=== PATIENT | male | born 1985 | race Caucasian/White ===

== ENCOUNTER 2021-09-25 11:37 | Emergency (ER) | payer SELFPAY ==
[2021-09-25 12:22] LABS: #Basophils 0.1 10x3/uL (0.0-0.2); #Eosinphils 0.3 10x3/uL (0.0-0.5); #Monocytes 0.5 10x3/uL (0.0-1.1); #Neutrophils 5.7 10x3/uL (1.5-8.4); %Basophils 0.6 % (0.0-2.0); %Eosinophils 3.6 % (0.0-6.0); %Lymphocytes 19.9 % (18.0-47.0); %Monocytes 6.5 % (0.0-10.0); Hemoglobin 15.7 g/dL (13.5-17.5); Mean Corpuscular HGB CONC 35.4 g/dL (32.0-36.0); Mean Corpuscular Hemoglobin 29.3 pg (27.0-33.0); Mean Corpuscular Volume 82.6 fl (81.2-95.1); Mean Platelet Volume 9.4 fl (7.4-10.4); Platelet Count 213 10x3/uL (150-450); RBC Distribution Width 12.7 % (11.5-14.5); Red Blood Cell (RBC) Count 5.36 10x6/uL (4.32-5.72); White Blood Cell (WBC) Count 8.3 10x3/uL (3.5-10.5)
[2021-09-25 14:06] LABS: ALT (SGPT) 59 U/L (8-55); AST (SGOT) 35 U/L (5-34); Albumin 4.2 g/dL (3.5-5.0); Alkaline Phosphatase 100 U/L (40-110); Anion Gap 13 mmol/L (10-20); BUN (Urea Nitrogen) 11 mg/dL (8.9-20.6); Bilirubin, Total 1.2 mg/dL (0.2-1.2); Calc. Creatinine Clearance 0 mL/min (70-130); Calcium 9.1 mg/dL (7.8-10.44); Carbon Dioxide 27 mmol/L (22-29); Chloride 104 mmol/L (98-107); Globulin 2.9 g/dL (2.4-3.5); Glucose 97 mg/dL (70-105); Protein, Total 7.1 g/dL (6.0-8.3); Sodium 140 mmol/L (136-145)
== END 2021-09-25 14:28 | disposition home or self-care (01) ==
LOC: CSHERS 11:37
DX: J20.9 Acute bronchitis, unspecified (principal)
CPT/HCPCS: 71045; 80053; 83690; 84484; 85025; 93005

== ENCOUNTER 2021-12-09 20:00 | Emergency (ER) | payer SELFPAY ==
[2021-12-09] MEDS ORDERED: Ondansetron ODT 4 MG TAB ONE (20:54)
== END 2021-12-09 20:59 | disposition home or self-care (01) ==
LOC: CSHERS 20:00
DX: K52.9 Noninfective gastroenteritis and colitis, unspecified (principal)
CPT/HCPCS: 99283; Q0162

== ENCOUNTER 2022-01-14 17:25 | Emergency (ER) | payer SELFPAY ==
[2022-01-14] MEDS ORDERED: Metoclopramide HCl 10 MG/2 ML VIAL ONE (19:02)
[2022-01-14] MEDS ORDERED: diphenhydrAMINE 50 MG/ML VIAL ONE (19:02)
== END 2022-01-14 20:38 | disposition home or self-care (01) ==
LOC: CSHERS 17:25
DX: R51.9 Headache, unspecified (principal)
CPT/HCPCS: 96361; 96374; 96375; J1200; J2765

== ENCOUNTER 2022-01-15 22:42 | Emergency (ER) | payer SELFPAY ==
[2022-01-15] MEDS ORDERED: methylPREDNISolone Sod Succ/PF 125 MG/2 ML VIAL ONE (23:41)
[2022-01-15] MEDS ORDERED: Acetaminophen 500 MG TAB ONE (23:42)
[2022-01-15] MEDS ORDERED: Magnesium 2 GM/50 ML BAG (IN WATER) ONE (23:42)
== END 2022-01-16 01:00 | disposition home or self-care (01) ==
LOC: CSHERS 22:42
DX: R51.9 Headache, unspecified (principal)
CPT/HCPCS: 70450; 96374; 96375; J2930; J3475

== ENCOUNTER → 2022-09-08 | Emergency (ER) | payer SELFPAY | LOC: CSHERS 18:17 | DX: Z53.21 Procedure and treatment not carried out due to patient leaving prior to being seen by health care provider (principal) ==

== ENCOUNTER 2022-09-30 12:32 | Emergency (ER) | payer SELFPAY ==
[2022-09-30] MEDS ORDERED: Metoclopramide HCl 10 MG TAB ONE (14:01)
[2022-09-30] MEDS ORDERED: Acetaminophen 500 MG TAB ONE (14:01)
[2022-09-30] MEDS ORDERED: Ketorolac Tromethamine 30 MG/ML VIAL ONE ×2 (14:02)
== END 2022-09-30 14:50 | disposition home or self-care (01) ==
LOC: CSHERS 12:32
DX: R51.9 Headache, unspecified (principal)
CPT/HCPCS: 96372; 99283; J1885

== ENCOUNTER 2022-10-02 10:06 | Emergency (ER) | payer SELFPAY ==
[2022-10-02] MEDS ORDERED: Ketorolac Tromethamine 30 MG/ML VIAL ONE (10:37)
[2022-10-02 11:01] LABS: #Basophils 0.1 10x3/uL (0.0-0.2); #Eosinphils 0.2 10x3/uL (0.0-0.5); #Monocytes 0.5 10x3/uL (0.0-1.1); #Neutrophils 6.4 10x3/uL (1.5-8.4); %Basophils 0.7 % (0.0-2.0); %Eosinophils 1.7 % (0.0-6.0); %Lymphocytes 20.1 % (18.0-47.0); %Neutrophils 71.3 % (40.0-75.0); Hemoglobin 15.2 g/dL (13.5-17.5); Mean Corpuscular Hemoglobin 29.1 pg (27.0-33.0); Mean Corpuscular Volume 83.1 fl (81.2-95.1); Mean Platelet Volume 9.4 fl (7.4-10.4); Platelet Count 224 10x3/uL (150-450); RBC Distribution Width 12.4 % (11.5-14.5); Red Blood Cell (RBC) Count 5.22 10x6/uL (4.32-5.72)
[2022-10-02 11:13] LABS: ALT (SGPT) 37 U/L (8-55); AST (SGOT) 23 U/L (5-34); Albumin 3.8 g/dL (3.5-5.0); Alkaline Phosphatase 84 U/L (40-110); Anion Gap 12 mmol/L (10-20); BUN (Urea Nitrogen) 14 mg/dL (8.9-20.6); Bilirubin, Total 0.7 mg/dL (0.2-1.2); Calc. Creatinine Clearance 0 mL/min (70-130); Calcium 8.7 mg/dL (7.8-10.44); Carbon Dioxide 27 mmol/L (22-29); Chloride 107 mmol/L (98-107); Estimated GFR 76; Globulin 2.1 g/dL (2.4-3.5); Glucose 105 mg/dL (70-105); Magnesium 2.2 mg/dL (1.6-2.6); Potassium 3.9 mmol/L (3.5-5.1); Protein, Total 5.9 g/dL (6.0-8.3); Sodium 142 mmol/L (136-145)
[2022-10-02 11:38] LABS: Bilirubin Neg (Negative); Blood, Urine Negative (Negative); Clarity Clear (Clear); Glucose, Urine (Dipstick) Normal (Negative); Ketone, Urine Negative (Negative); Leukocyte Negative (Negative); Nitrite Negative (Negative); Protein, Urine (Dipstick) 100 mg/dl (Neg-Trace); Urobilinogen Normal mg/dL (Less than 2)
[2022-10-02 11:55] LABS: RBC/HPF 0-3 HPF (0-3); Squamous Epithelial None Seen HPF (0-3); WBC/HPF 0-3 HPF (0-3)
[2022-10-02 11:56] LABS: Bacteria/HPF None Seen HPF (None Seen)
== END 2022-10-02 12:20 | disposition home or self-care (01) ==
LOC: CSHERS 10:06
DX: M54.50 Low back pain, unspecified (principal)
CPT/HCPCS: 74176; 80053; 81003; 81015; 83735; 85025; 96374; J1885

== ENCOUNTER 2022-10-07 10:56 | Observation (INO) | payer OTHER, SELFPAY ==
[~2022-10-07 10:56] MED LIST: Iopamidol 300 61% 100 ML VIAL FS ONE
[2022-10-07 12:19] LABS: #Basophils 0.1 10x3/uL (0.0-0.2); #Eosinphils 0.2 10x3/uL (0.0-0.5); #Monocytes 0.4 10x3/uL (0.0-1.1); #Neutrophils 3.4 10x3/uL (1.5-8.4); %Basophils 0.9 % (0.0-2.0); %Eosinophils 3.1 % (0.0-6.0); %Lymphocytes 30.4 % (18.0-47.0); %Monocytes 6.7 % (0.0-10.0); %Neutrophils 58.6 % (40.0-75.0); Hemoglobin 13.7 g/dL (13.5-17.5); Mean Corpuscular HGB CONC 34.9 g/dL (32.0-36.0); Mean Corpuscular Hemoglobin 28.8 pg (27.0-33.0); Mean Corpuscular Volume 82.4 fl (81.2-95.1); Mean Platelet Volume 9.4 fl (7.4-10.4); Platelet Count 219 10x3/uL (150-450); RBC Distribution Width 11.9 % (11.5-14.5); Red Blood Cell (RBC) Count 4.76 10x6/uL (4.32-5.72); White Blood Cell (WBC) Count 5.8 10x3/uL (3.5-10.5)
[2022-10-07 12:38] LABS: ALT (SGPT) 22 U/L (8-55); AST (SGOT) 13 U/L (5-34); Albumin 3.5 g/dL (3.5-5.0); Alkaline Phosphatase 74 U/L (40-110); Anion Gap 14 mmol/L (10-20); BUN (Urea Nitrogen) 21 mg/dL (8.9-20.6); Bilirubin, Total 0.9 mg/dL (0.2-1.2); Calc. Creatinine Clearance 0 mL/min (70-130); Calcium 8.1 mg/dL (7.8-10.44); Carbon Dioxide 23 mmol/L (22-29); Chloride 108 mmol/L (98-107); Estimated GFR 23; Globulin 1.9 g/dL (2.4-3.5); Glucose 86 mg/dL (70-105); Lipase 6 U/L (8-78); Potassium 3.8 mmol/L (3.5-5.1); Protein, Total 5.4 g/dL (6.0-8.3); Sodium 141 mmol/L (136-145)
[2022-10-07 13:27] LABS: Bilirubin Neg (Negative); Blood, Urine 25 (Negative); Clarity Clear (Clear); Glucose, Urine (Dipstick) Normal (Negative); Ketone, Urine Negative (Negative); Leukocyte Negative (Negative); Nitrite Negative (Negative); Protein, Urine (Dipstick) Negative (Neg-Trace); Specific Gravity, Urine 1.015 (1.005-1.030); Urobilinogen Normal mg/dL (Less than 2)
[2022-10-07 13:49] LABS: Bacteria/HPF Rare-Few HPF (None Seen); Squamous Epithelial 0-3 HPF (0-3)
[2022-10-07] MEDS ORDERED: Acetaminophen 650 MG Suppository PR PRN (14:10)
[2022-10-07] MEDS ORDERED: Guaifenesin DM 100-10/5 ML UDCUP PO PRN (14:10)
[2022-10-07] MEDS ORDERED: Acetaminophen 325 MG TAB PO PRN (14:10)
[2022-10-07] MEDS ORDERED: Senokot S 8.6-50 MG TAB PO PRN (14:10)
[2022-10-07] MEDS ORDERED: Ondansetron PF 4 MG/2 ML Vial IVP PRN (14:10)
[2022-10-07] MEDS ORDERED: Ondansetron ODT 4 MG TAB PO PRN (14:10)
[2022-10-07] MEDS ORDERED: Cyclobenzaprine 10 MG TAB PO PRN (14:17)
[2022-10-07 16:30] VITALS: BMI 38.4
[2022-10-07] MEDS: Sodium Chloride 0.9% 1,000 ML IV SCH (20:22)
[2022-10-08] MEDS: Sodium Chloride 0.9% 1,000 ML IV SCH ×3 (01:53→20:29)
[2022-10-08 04:45] LABS: Anion Gap 14 mmol/L (10-20); BUN (Urea Nitrogen) 19 mg/dL (8.9-20.6); Calc. Creatinine Clearance 63 mL/min (70-130); Calcium 8.2 mg/dL (7.8-10.44); Carbon Dioxide 23 mmol/L (22-29); Chloride 108 mmol/L (98-107); Estimated GFR 30; Glucose 91 mg/dL (70-105); Potassium 3.9 mmol/L (3.5-5.1); Sodium 141 mmol/L (136-145)
[2022-10-08 04:58] LABS: #Eosinphils 0.2 10x3/uL (0.0-0.5); #Monocytes 0.4 10x3/uL (0.0-1.1); #Neutrophils 4.1 10x3/uL (1.5-8.4); %Basophils 0.4 % (0.0-2.0); %Eosinophils 2.8 % (0.0-6.0); %Lymphocytes 30.1 % (18.0-47.0); %Monocytes 6.5 % (0.0-10.0); %Neutrophils 59.8 % (40.0-75.0); Hemoglobin 13.4 g/dL (13.5-17.5); Mean Corpuscular HGB CONC 34.4 g/dL (32.0-36.0); Mean Corpuscular Hemoglobin 28.9 pg (27.0-33.0); Mean Platelet Volume 9.7 fl (7.4-10.4); Platelet Count 206 10x3/uL (150-450); Red Blood Cell (RBC) Count 4.63 10x6/uL (4.32-5.72); White Blood Cell (WBC) Count 6.8 10x3/uL (3.5-10.5)
[2022-10-09 06:53] VITALS: TEMP 97.9
[2022-10-09] MEDS: Sodium Chloride 0.9% 1,000 ML IV SCH (06:54)
[2022-10-09 08:48] LABS: Anion Gap 11 mmol/L (10-20); BUN (Urea Nitrogen) 16 mg/dL (8.9-20.6); Calc. Creatinine Clearance 86 mL/min (70-130); Calcium 8.4 mg/dL (7.8-10.44); Carbon Dioxide 25 mmol/L (22-29); Chloride 107 mmol/L (98-107); Estimated GFR 44; Glucose 89 mg/dL (70-105); Sodium 139 mmol/L (136-145)
[2022-10-09 11:57] VITALS: BP 137/80
== END 2022-10-09 13:15 | disposition home or self-care (01) ==
LOC: CSHERS 10:56 → CSHTELE 16:02
PROVIDERS: ADMIT Emergency Medicine; ATTEND Internal Medicine
DX: M54.50 Low back pain, unspecified (principal); R10.13 Epigastric pain; N17.9 Acute kidney failure, unspecified; R00.1 Bradycardia, unspecified; Z79.899 Other long term (current) drug therapy; Z90.49 Acquired absence of other specified parts of digestive tract
CPT/HCPCS: 36415; 74177; 76770; 80048; 80053; 81003; 81015; 83690; 84484; 85025; 93005; 94760; G0378; J7050; Q9967